=== PATIENT | male | born 1965 | race Caucasian/White ===

== ENCOUNTER → 2023-04-06 15:58 | Outpatient (BNVA) | payer MEDICARE, MEDICAID, SELFPAY | PROVIDERS: PCP Internal Medicine; Visit Provider Physician Assistant | DX: M54.40 Lumbago with sciatica, unspecified side (principal) | CPT/HCPCS: 99212 ==

== ENCOUNTER 2023-06-24 21:44 | Emergency (ER) | payer MEDICARE, MEDICAID, SELFPAY ==
--- NOTE | ~2023-06-24 | XR_ITS ---
EXAMINATION: XR FOOT, RIGHT CLINICAL INFORMATION: Question reinjury. Still painful. COMPARISON: None available. TECHNIQUE: AP, lateral, and oblique views of the right foot. FINDINGS: Subtle cortical offset at the lateral margin of the second metatarsal base as seen on the oblique view raises the possibility of a nondisplaced fracture. No additional fractures are identified. Alignment at the tarsometatarsal joints appears normal. There is a marginal osteophyte at the second MTP joint associated with subtle cortical flattening at the distal margin of the metatarsal head, raising the possibility of chronic changes of Freiberg's infraction. This is relatively subtle, however, and may be degenerative in nature. Additional flattening is evident at the metatarsal head. There is mild multifocal osteophytes in the interphalangeal joints. XR/XR foot RT min 3V IMPRESSION: 1. Subtle cortical offset at the second metatarsal base, raising the possibility of a nondisplaced fracture. Recommend correlation for point tenderness in this region and consider CT of appropriate. 2. 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 3. Irregular cortical flattening at the second and third metatarsal heads with small marginal osteophytes, most likely degenerative in nature. 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
[2023-06-24 21:57] VITALS: BP 148/99; PULSE 71; RESP 18; TEMP 36.7; O2SAT 97; BMI 30.1
--- NOTE | 2023-06-25 00:35 | ED_ITS ---
HPI - Extremity Injury (Lower) General Chief Complaint: Extremity Injury, Lower Stated Complaint: Right foot swollen both feet hurting Time Seen by Provider: 06/25/23 00:17 Source: patient Mode of arrival: ambulatory History of Present Illness [facility] Narrative: Patient reports some vague history of stepped on a nail 3 months ago and was started on antibiotics and received tetanus shot then went to his primary care provider who started him on Augmentin. Patient is still having pain 8/10 of the right foot. Patient is noted to wear heavy boots. Related Data Allergies Allergy/AdvReac Type Severity Reaction Status Date / Time Sulfa (Sulfonamide Allergy Anaphylaxis Verified 06/24/23 21:56 Antibiotics) Review of Systems Review of Systems: Pertinent positives and negatives as stated in [facility] Past Medical History Source: nursing notes reviewed Physical Exam Vital Signs: Vital Signs: Last Vital Signs Temp 98.1 F 06/24/23 21:57 Pulse 71 06/24/23 21:57 Resp 18 06/24/23 21:57 BP 148/99 H 06/24/23 21:57 Pulse Ox 97 06/24/23 21:57 O2 Del Method Room Air 06/24/23 21:57 BMI result Body Mass Index 30.1 VITAL SIGNS: Reviewed. GENERAL: Well developed, well nourished, in no acute distress. HEAD: Normocephalic/atraumatic EYES: PERRLA, EOMI LUNGS: Normal breath sounds. No adventitious sounds or accessory muscle use. SpO2<97> CARDIOVASCULAR: Regular rate and rhythm without noted murmurs, ABDOMEN: Soft, non-tender, non-distended with bowel sounds. MUSCULOSKELETAL: No tenderness, deformities, or effusions noted on gross inspection. EXTREMITIES: No cyanosis, clubbing or edema; RIGHT FOOT: No obvious deformity, foot is warm, good color, no ulcers, palpable DP/PT, good capillary refill. SKIN: Inspection of the skin reveals no rashes NEUROLOGIC: Alert and oriented x 4. Strength and sensation to light touch were grossly intact x 4. Medical Decision Making Medical Decision Making [facility] Narrative: 57-year-old male with history and clinical presentation, DDX: Fracture, dislocation, infection I reviewed imaging studies which demonstrates possible nondisplaced fracture at the 2nd metatarsal base. There is a possibility a stress fracture given patient's foot wear, there is no evidence to suggest infection clinically, results given to the patient he was discharged home in a postop shoe with instructions to follow-up with his primary care provider. Differential Diagnosis Differential Diagnoses: The differential diagnosis associated with the presentation includes Please see the discussion above Admission/Observation Consideration of admission/observation: Escalation of care including admission/observation considered Please see the discussion above Radiology Impression Discussion of test interpretation with radiology: I have reviewed the radiologist's reading. Radiologist Impression: Please see the discussion above Discharge Plan Discharge Clinical Impression: Nondisplaced fracture of second metatarsal bone of right foot Patient Disposition: Home, Self-Care Instructions: Foot Fracture in Adults (ED), Post Surgical Shoe (ED) Additional Instructions: 1. Recommend [id number] Tylenol/ibuprofen as needed for pain control. 2. Please follow-up with your primary care provider Sunday. Return to the ER for any worsening symptoms. Referrals: Bipin Daley MD [Primary Care Provider] - Stand Alone Forms: Work/School Release
--- NOTE | 2023-06-25 01:06 | MHC.EDTECH ---
Per the request of this tech applied a post op shoe to patients right foot,Patient tolerated very well. RN aware and pt is awaiting discharge at this time
[2023-06-25 01:37] VITALS: BP 149/86; PULSE 88; RESP 20; O2SAT 98
== END 2023-06-25 01:20 | disposition home or self-care (01) ==
PROVIDERS: Emergency Provider Student in an Organized Health Care Education/Training Program; PCP Internal Medicine
DX: S92.324A Nondisplaced fracture of second metatarsal bone, right foot, initial encounter for closed fracture (principal); X58.XXXA Exposure to other specified factors, initial encounter; Y93.9 Activity, unspecified; Y92.9 Unspecified place or not applicable; Y99.9 Unspecified external cause status
CPT/HCPCS: 73630; 99283; 99284